=== PATIENT | female | born 1960 | race Caucasian/White ===

== ENCOUNTER → 2020-10-20 08:25 | Outpatient (BNVA) | payer BC, SELFPAY | PROVIDERS: Visit Provider Registered Nurse | DX: N39.0 Urinary tract infection, site not specified (principal) | CPT/HCPCS: 81000 ==

== ENCOUNTER → 2022-02-02 09:13 | Outpatient (BNVA) | payer BC, SELFPAY | PROVIDERS: PCP Registered Nurse; Visit Provider Registered Nurse | DX: Z00.00 Encounter for general adult medical examination without abnormal findings (principal); Z13.6 Encounter for screening for cardiovascular disorders; Z12.11 Encounter for screening for malignant neoplasm of colon; Z71.85 Encounter for immunization safety counseling; E66.3 Overweight | CPT/HCPCS: 80053; 80061; 84443; 85025 ==

== ENCOUNTER → 2022-02-17 09:08 | Outpatient (BNVA) | payer BC, SELFPAY | PROVIDERS: PCP Registered Nurse; Referring Provider Dermatology; Visit Provider Podiatrist Foot & Ankle Surgery | DX: M79.672 Pain in left foot (principal); M21.612 Bunion of left foot | CPT/HCPCS: 73620; 73630 ==